=== PATIENT | female | born 2000 | race Caucasian/White ===

== ENCOUNTER 2021-06-25 15:34 | Emergency (ER) | payer OTHER, SELFPAY ==
[2021-06-25 15:46] VITALS: BP 125/99; PULSE 96; RESP 16; TEMP 37.1; O2SAT 99
--- NOTE | 2021-06-25 15:54 | ED.URI ---
HPI - URI/Sore Throat General Chief Complaint: Upper Respiratory Infection Stated Complaint: sore throat Time Seen by Provider: 06/25/21 15:56 Source: patient and RN notes reviewed Mode of arrival: ambulatory Limitations: no limitations History of Present Illness HPI Narrative: 21-year-old female presents concern for 1 week history of sore throat. Reports sinus congestion, drainage, some ear pain and clogging. Reports the symptoms are resolving, however the sore throat remains. Reports she tried DayQuil and NyQuil with little relief. She denies fever, shortness of breath, body aches, chills, sweats. Denies known sick contacts. Reports she was vaccinated for Covid. MD elicited complaint: sore throat Related Data Home Medications Medication Instructions Recorded Confirmed bupropion HCl 150 mg PO DAILY 06/25/21 06/25/21 escitalopram oxalate 20 mg PO DAILY 06/25/21 06/25/21 norgestimate-ethinyl estradiol 0.18 tablet PO DAILY 06/25/21 06/25/21 [Tri-Sprintec (28)] Allergies Allergy/AdvReac Type Severity Reaction Status Date / Time No Known Allergies Allergy Verified 11/06/19 15:13 Review of Systems Review of Systems: CONSTITUTIONAL: Denies malaise, chills, sweats, or fever. EYES: Denies visual changes, redness, or discharge. ENT: Reports rhinorrhea, congestion,otalgia and sore throat. CARDIOVASCULAR: Denies chest pain, palpitations, or edema. RESPIRATORY: Reports occasional cough. Denies dyspnea. GASTROINTESTINAL: Denies abdominal pain, nausea, vomiting, diarrhea SKIN: Denies rash or itching. MUSCULOSKELETAL: Denies myalgia. NEUROLOGIC: Denies headache. All systems reviewed & are unremarkable except as noted in HPI and below PMFSH Family History Family History Grandparent Family history of mental disorder Depression Family history of elevated blood lipids Family history of lymphoma Family history of malignant neoplasm of urinary bladder Mother Family history of elevated blood lipids Father Family history of hypothyroidism Social History Social History Smoking status: Never smoker Second hand tobacco smoke exposure: No Alcohol intake: never Gender identity (if verbalized by the patient): Female Comments At time of signature, agree with nursing past medical, surgical, social and family history. There is no relevant family history pertinent to the presenting complaint Exam Narrative: GENERAL: Well-appearing, well-nourished, and in no acute distress. HEAD: Normocephalic EYES: PERRLA, conjunctivae clear ENT: Nares clear, clear discharge. Mucous membranes moist. TM pearly evans with sharp light reflex bilaterally; no tragal tenderness. Oropharynx erythematous without lesions. Tonsils not enlarged and without exudate, no drooling, no hoarseness, no trismus, uvula midline. NECK: Supple. No lymphadenopathy CHEST: Clear to auscultation, breath sounds equal. No wheezing, rhonchi, rales, or stridor. No respiratory distress, speaks in full sentences. HEART: Regular rate and rhythm. No murmur heard. SKIN: Warm, dry, no rash. NEURO: Alert and oriented x3. PSYCH: Normal mood and affect Course Course Emergency Course: Patient is aware of diagnosis, understands and agrees to treatment plan. Anticipatory guidance given. Patient agrees to follow-up as directed and is aware of reasons to seek care at the emergency department. Portions of this record may have been created with voice recognition software Vital Signs Vital signs: Vital Signs Temperature 98.8 F 06/25/21 15:46 Pulse Rate 96 06/25/21 15:46 Respiratory Rate 16 06/25/21 15:46 Blood Pressure 125/99 H 06/25/21 15:46 Pulse Oximetry 99 06/25/21 15:46 Temperature 98.8 F 06/25/21 15:46 Pulse Rate 96 06/25/21 15:46 Respiratory Rate 16 06/25/21 15:46 Blood Pressure 125/99 H 06/25/21 15:46 Pulse Oximetry 99
[2021-06-26 20:10] LABS: SARS-CoV-2 RNA PCR Negative
== END 2021-06-25 16:26 | disposition home or self-care (01) ==
PROVIDERS: Emergency Provider Nurse Practitioner; PCP Family Medicine
DX: J06.9 Acute upper respiratory infection, unspecified (principal); Z20.822 Contact with and (suspected) exposure to COVID-19
CPT/HCPCS: 87081; 87426; 87880; 99213; C9803; G0463; U0003; U0005